=== PATIENT | male | born 1985 | race African-American/Black ===

== ENCOUNTER 2023-12-18 12:07 | Emergency (ER) | payer OTHER ==
[2023-12-18 12:15] VITALS: BP 114/80; PULSE 63; RESP 19; TEMP 98.4; BMI 18.2
[2023-12-18] MEDS ORDERED: IBUPROFEN 600 MG TABLET (FP) PO ONE (13:08)
[2023-12-18] MEDS: IBUPROFEN 600 MG TABLET (FP) PO ONE (13:10)
== END 2023-12-18 13:21 | disposition home or self-care (01) ==
LOC: JERFT 12:07 → JER 12:07 → JERFT 13:21
DX: M25.512 Pain in left shoulder (principal); W19.XXXA Unspecified fall, initial encounter
CPT/HCPCS: 73030-TC-LT-FY; 99283-25

== ENCOUNTER 2024-09-23 09:45 | Emergency (ER) | payer OTHER ==
[2024-09-23 10:24] VITALS: RESP 16; TEMP 98.2; BMI 20.5
[2024-09-23 11:26] LABS: POTASSIUM 4.3 mmol/L (3.5-5.1)
[2024-09-23 11:29] LABS: CALCIUM 8.2 mg/dL (8.5-10.1)
[2024-09-23 11:30] LABS: ALBUMIN 2.8 g/dl (3.4-5.0); BLOOD UREA NITROGEN 6.8 mg/dL (7-18)
[2024-09-23 11:33] LABS: CREATININE 0.8 mg/dL (0.55-1.3)
[2024-09-23 11:35] LABS: BILIRUBIN,TOTAL 0.4 mg/dL (0.2-1)
[2024-09-23] MEDS ORDERED: levETIRAcetam 500 MG TABLET (FP) PO ONE (12:02)
[2024-09-23] MEDS: levETIRAcetam 500 MG TABLET (FP) PO ONE (12:07)
[2024-09-23 12:20] VITALS: BP 105/62; PULSE 70
== END 2024-09-23 12:30 | disposition home or self-care (01) ==
LOC: JER 09:45
DX: G40.909 Epilepsy, unspecified, not intractable, without status epilepticus (principal); R42 Dizziness and giddiness; R41.0 Disorientation, unspecified
CPT/HCPCS: 36415; 80053; 93005; 93010; 99284-25